=== PATIENT | male | born 2005 | race Caucasian/White ===

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

== ENCOUNTER 2023-05-13 14:17 | Emergency (ER) | payer OTHER, SELFPAY ==
[2023-05-13 14:40] VITALS: BP 118/66; PULSE 87; RESP 18; TEMP 37; O2SAT 96; BMI 16.9
--- NOTE | 2023-05-13 15:06 | EXP.UTC ---
Discharge Plan Disposition Patient Disposition: Home, Self-Care Condition: Good Prescriptions Prescriptions: New wifxlethehmmpvt-fpbihshri-FS [Bromfed DM] 2-30-10 mg/5 mL Syrup 5 ml PO Q6H PRN (Reason: Cough) Qty: 240 0RF ondansetron 4 mg Tablet,Disintegrating 4 mg PO Q8H PRN (Reason: Nausea) Qty: 8 0RF Referrals Follow up/Referrals: Provider,Referral, MD [Primary Care Provider] - See instructions Activity Restrictions/Add. Instructions Additional Instructions/Restrictions: Drink plenty of fluids. Take tylenol or ibuprofen for pain or fever. Take the medications as directed. Follow up with your regular doctor. GO TO THE ER FOR ANY WORSENING SYMPTOMS Clinical Impressions Clinical Impression: Influenza B Stand Alone Forms Stand Alone Forms: Work/School Release Instructions Patient Instructions: Influenza, DI for Influenza -- Adult, Ondansetron Discharge ED Provider: Guanakito Hadley [facility] General Stated complaint: abd pain, V/D Time Seen by Provider: 05/13/23 15:06 History of Present Illness Provider Complaint: He states that for the past 2 days he has had fever, chills, malaise, n/v/d. He denies any abdominal pain. Related Data Previous Rx's Medication Instructions Recorded zfjgmgppqiwxuhw-patnijvxmxupluv-UQ 5 ml PO Q6H PRN Cough #240 mL 05/13/23 2 mg-30 mg-10 mg/5 mL oral syrup (Bromfed DM) ondansetron 4 mg disintegrating 4 mg PO Q8H PRN Nausea #8 tabs 05/13/23 tablet Allergies Allergy/AdvReac Type Severity Reaction Status Date / Time No Known Allergies Allergy Verified 05/13/23 15:10 [facility] Disclaimer: The information contained in this section may have been updated after the patient was seen, as this information can be updated by other users. Social History Smoking Status: Never smoker alcohol intake: never substance use type: denies use current occupational status: student Travel in the last 8 weeks: None household members: family housing: house ROS Obtained: Yes All systems reviewed & no additional complaints except as documented Constitutional Constitutional: Denies chills, Denies fever(s) and Reports poor appetite ENT Ears, Nose, Mouth, and Throat: Denies dizziness and Denies sore throat Cardiovascular Cardiovascular: Denies dyspnea Respiratory Respiratory: Denies chest congestion, Denies cough and Denies dyspnea Gastrointestinal Gastrointestingal: Reports as per HPI, cramping, diarrhea, nausea and vomiting; Denies abdominal pain Musculoskeletal Musculoskeletal: Denies arthralgias Integumentary/Breasts Skin/Breast: Denies rash Neurologic Neurologic: Denies dizziness Physical Exam General General appearance: alert and in no apparent distress Head Head exam: atraumatic and normocephalic Eye Eye exam: Present normal appearance, PERRL and EOMI ENT ENT exam: Present normal exam, normal oropharynx, mucous membranes moist, TM's normal bilaterally and normal external ear exam Neck Neck exam: Present normal inspection, full ROM and trachea midline; Absent tenderness, meningismus or lymphadenopathy Chest Chest inspection: Present normal inspection and symmetric chest wall rise; Absent tenderness, rash or abscess Respiratory Respiratory exam: Present normal lung sounds bilaterally; Absent respiratory distress, wheezes or stridor Cardiovascular Cardiovascular exam: Present regular rate and normal rhythm; Absent irregular rhythm, systolic murmur, diastolic murmur or JVD Abdominal Exam Abdominal exam: Present soft and hyperactive bowel sounds; Absent distention, tenderness, guarding, rebound, rigidity, psoas sign, obturator sign, heel tap sign, Forrest's sign, Rovsing's sign or tenderness at McBurney's Point Extremities Exam Extremities exam: Present normal inspection and full ROM; Absent tenderness Back Exam Back exam: Present normal inspection and full ROM; Absent tenderness, CVA tenderness (R) or CVA tenderness (L) Neurological Exam Neurological exam: Present alert, oriented X3 and CN II-XII intact Psychiatric Psychiatric exam: Present normal affect and normal mood Skin Skin exam: Present warm, dry, intact and normal color Lymphatic Lymphatic Findings: no adenopathy Medical Decision Making Medical Records Medical records reviewed: No I reviewed the patient's medical records. Zander Inquiry Pt receiving controlled substance: No Lab Data Lab results reviewed: Yes I reviewed the patient's lab results.
[2023-05-13 15:20] LABS: UTC Strep Screen (Rapid) Negative (Negative)
[2023-05-13 15:21] LABS: UTC Influenza A Antigen Negative (Negative); UTC Influenza B Antigen Positive (Negative)
[2023-05-13 15:30] VITALS: BP 118/66; PULSE 87; RESP 18; TEMP 37; O2SAT 96
== END 2023-05-13 15:39 | disposition home or self-care (01) ==
PROVIDERS: Emergency Provider Nurse Practitioner Family
DX: J10.2 Influenza due to other identified influenza virus with gastrointestinal manifestations (principal); R11.2 Nausea with vomiting, unspecified; R19.7 Diarrhea, unspecified
CPT/HCPCS: 87804; 87880; 99212; 99214; G0463

== ENCOUNTER 2023-07-23 14:16 | Emergency (ER) | payer OTHER, SELFPAY ==
[2023-07-23 15:00] VITALS: BP 134/80; PULSE 74; RESP 19; TEMP 36.9; O2SAT 98; BMI 16.5
--- NOTE | 2023-07-23 15:18 | EXP.UTC ---
Discharge Plan Disposition Patient Disposition: Home, Self-Care Condition: Good Prescriptions Prescriptions: New ondansetron 4 mg tablet,disintegrating 4 mg PO Q8H PRN (Reason: nausea and vomiting) Qty: 10 0RF Referrals Follow up/Referrals: Simi Daigle PA [Primary Care Provider] - See instructions Activity Restrictions/Add. Instructions Additional Instructions/Restrictions: Drink extra fluids with and between meals. If you have difficulty drinking, try very small amounts of water or suck on ice chips. ? Avoid fruit juices, as these do not replace minerals and can actually increase diarrhea. ? Children and adults can use sports drinks to replenish electrolytes. Younger children and infants should use products formulated for children, like oral rehydration solutions. ? Eat food in small amounts and let your stomach recover. ? Get lots of rest. You may feel tired or weak. ? No greasy or fried foods for the next 24-48 hours BRAT diet Bananas Rice Apples and [place] ? Make sure to drink plenty of liquids ? Return if needed ? Straight to ER if any life threatening symptoms ? Zofran as prescribed ? Follow up with family doctor in the next 48-72 hours if no improvement or any worsening of symptoms Clinical Impressions Clinical Impression: Viral syndrome Stand Alone Forms Stand Alone Forms: Work/School Release Instructions Patient Instructions: Nausea and Vomiting-Adult, Ondansetron Discharge ED Provider: Aleida Ryder [facility] General Stated complaint: abd pain, body aches Mode of Arrival: Ambulatory Source of Information: Patient Limitations: No Limitations Time Seen by Provider: 07/23/23 15:18 Description of Symptoms (Recalled from Triage Doc. by RN): PATIENT C/O NAUSEA AND HEADACHE SINCE YESTERDAY HEENT Symptoms (Recalled from RN notes): Yes Resp Symptoms (Recalled from RN notes): No Skin Symptoms (Recalled from RN notes): No MS Symptoms (Recalled from RN notes): No Functional Status (Recalled from RN notes): WNL History of Present Illness Provider Complaint: Patient states that little sister had stomach bug last week and he woke up yesterday with n/v and headache and wasnt able to work States today he hasnt vomited any but still having nausea and little headache and didnt go into work today needing a note Related Data Previous Rx's Medication Instructions Recorded ondansetron 4 mg disintegrating 4 mg PO Q8H PRN nausea and 07/23/23 tablet vomiting #10 tabs Allergies Allergy/AdvReac Type Severity Reaction Status Date / Time No Known Allergies Allergy Verified 05/13/23 15:10 Worker's Comp Is this a Worker's Comp case?: No [facility] Disclaimer: The information contained in this section may have been updated after the patient was seen, as this information can be updated by other users. Medical History (Updated 07/23/23 @ 15:25 by Aleida Ryder APRN) No significant past medical history Social History Smoking Status: Never smoker alcohol intake: never substance use type: denies use current occupational status: student Travel in the last 8 weeks: None household members: family housing: house ROS Obtained: Yes All systems reviewed & no additional complaints except as documented and Yes Systems reviewed as appropriate & no additional complaints except as documented Constitutional Constitutional: Reports system reviewed and no additional complaints, except as documented, Reports as per HPI and Reports headache(s) ENT Ears, Nose, Mouth, and Throat: Reports system reviewed and no additional complaints, except as documented, Reports as per HPI and Reports headache(s) Cardiovascular Cardiovascular: Reports system reviewed and no additional complaints, except as documented and Reports as per HPI Respiratory Respiratory: Reports system reviewed and no additional complaints, except as documented and Reports as per HPI Gastrointestinal Gastrointestingal: Reports system reviewed and no additional complaints, except as documented, as per HPI, nausea and vomiting Neurologic Neurologic: Reports headache(s) Physical Exam General General appearance: alert and in no apparent distress Eye Eye exam: Present normal appearance, PERRL and EOMI ENT ENT exam: Present mucous membranes moist Expanded ENT Exam Nose exam: Absent sinus tenderness Throat exam: Present normal inspection Respiratory Respiratory exam: Present normal lung sounds bilaterally; Absent respiratory distress or wheezes Cardiovascular Cardiovascular exam: Present regular rate and normal heart sounds; Absent normal rhythm or bradycardia Neurological Exam Neurological exam: Present alert, oriented X3 and normal gait Medical Decision Making Zander Inquiry Pt receiving controlled substance: No Zander was queried for this patient: No Vital Signs: 07/23/23 15:00 Temperature 98.4 F Temperature Source Oral Pulse Rate [Left Brachial] 74 Respiratory Rate 19 Blood Pressure [Left Arm] 134/80 Blood Pressure Mean [Left Arm] 98 Blood Pressure Source [Left Arm] Automatic Cuff Blood Pressure Position [Left Arm] Sitting 02 Sat by Pulse Oximetry 98 Oxygen Delivery Method Room Air
[2023-07-23] MEDS: IBUPROFEN 600 MG TABLET PO (15:32)
[2023-07-23 15:33] VITALS: BP 134/80; PULSE 74; RESP 19; TEMP 36.9; O2SAT 98
== END 2023-07-23 15:36 | disposition home or self-care (01) ==
PROVIDERS: Emergency Provider Nurse Practitioner; PCP Physician Assistant
DX: R11.2 Nausea with vomiting, unspecified (principal); R51.9 Headache, unspecified; B34.9 Viral infection, unspecified
CPT/HCPCS: 99212; 99214; G0463

== ENCOUNTER 2023-08-31 14:39 | Emergency (ER) | payer OTHER, SELFPAY ==
--- NOTE | 2023-08-31 14:45 | ED_ITS ---
Discharge Plan Disposition Patient Disposition: Home, Self-Care Condition: Good Prescriptions Prescriptions: New xjbhjeiebrdeayr-lptxvpegj-PN [Bromfed DM] 2-30-10 mg/5 mL syrup 5 - 10 ml PO Q4H PRN (Reason: Cough) Qty: 240 0RF Mediplast Nvdx-Rsgwvb-Zxdq 40 % adhesive patch,medicated 1 applic topical Q2D Qty: 25 0RF terbinafine HCl [Athlete's Foot (terbinafine)] 1 % cream 1 applic topical BID Qty: 30 1RF Referrals Follow up/Referrals: Simi Daigle PA [Primary Care Provider] - See instructions Clinical Impressions Clinical Impression: Viral upper respiratory illness, Wart, Athlete's foot Instructions Patient Instructions: DI for Viral Upper Respiratory Infection -- Adult Discharge ED Provider: Simi Daigle [facility] [place] [place] HPI General Stated complaint: heacahe, sore throat, cough, congestion Time Seen by Provider: 08/31/23 15:11 History of Present Illness Provider Complaint: Headache, sore throat, cough congestion X 1 days. No fever Wart on left hand. Toenail fungus. Onset (ago): day(s) (1) Related Data Previous Rx's Medication Instructions Recorded iykpjqiqfbkbgfv-dubjmwckiobyehi-OM 5 - 10 ml PO Q4H PRN Cough #240 mL 08/31/23 2 mg-30 mg-10 mg/5 mL oral syrup (Bromfed DM) salicylic acid 40 % topical patch 1 applic topical Q2D #25 ea 08/31/23 (Mediplast Efdu-Uhvpkg-Moom Remover) terbinafine HCl 1 % topical cream 1 applic topical BID #30 grams 08/31/23 (Athlete's Foot (terbinafine)) Allergies Allergy/AdvReac Type Severity Reaction Status Date / Time No Known Allergies Allergy Verified 08/31/23 14:54 [facility] Disclaimer: The information contained in this section may have been updated after the patient was seen, as this information can be updated by other users. Medical History (Updated 08/31/23 @ 15:23 by BONNIE Mejia) No significant past medical history Social History Smoking Status: Never smoker alcohol intake: never substance use type: denies use current occupational status: student Travel in the last 8 weeks: None household members: family housing: house ROS Obtained: Yes All systems reviewed & no additional complaints except as documented Constitutional Constitutional: Reports headache(s) ENT Ears, Nose, Mouth, and Throat: Reports headache(s), Reports sinus pain, Reports sinus pressure and Reports sore throat Respiratory Respiratory: Reports cough Neurologic Neurologic: Reports headache(s) Physical Exam General General appearance: alert and in no apparent distress Eye Eye exam: Present normal appearance, PERRL and EOMI ENT ENT exam: Present mucous membranes moist Expanded ENT Exam Nose exam: Absent sinus tenderness Throat exam: Present tonsillar erythema and other (PND) Respiratory Respiratory exam: Present normal lung sounds bilaterally; Absent respiratory distress or wheezes Cardiovascular Cardiovascular exam: Present regular rate and normal heart sounds; Absent normal rhythm or bradycardia Neurological Exam Neurological exam: Present alert, oriented X3 and normal gait Medical Decision Making Zander Inquiry Pt receiving controlled substance: No
[2023-08-31 14:50] VITALS: BP 124/79; PULSE 79; RESP 18; TEMP 36.7; O2SAT 100; BMI 16.3
[2023-08-31 15:03] LABS: UTC Strep Screen (Rapid) Negative (Negative)
[2023-08-31 15:43] VITALS: BP 124/79; PULSE 79; RESP 18; TEMP 36.7; O2SAT 100
== END 2023-08-31 15:43 | disposition home or self-care (01) ==
PROVIDERS: Emergency Provider Physician Assistant; PCP Physician Assistant
DX: R51.9 Headache, unspecified (principal); R07.0 Pain in throat; J06.9 Acute upper respiratory infection, unspecified; R05.9 Cough, unspecified; B35.3 Tinea pedis; B07.9 Viral wart, unspecified
CPT/HCPCS: 87880; 99212; 99214; G0463

== ENCOUNTER 2023-12-06 18:46 | Emergency (ER) | payer OTHER, SELFPAY ==
[2023-12-06 19:25] VITALS: BP 131/73; PULSE 71; RESP 20; TEMP 37.1; O2SAT 99; BMI 17.4
--- NOTE | 2023-12-06 19:28 | HMH.EDGENADL ---
Discharge Plan Disposition Patient Disposition: Home, Self-Care Condition: Good Prescriptions Prescriptions: New ondansetron 4 mg tablet,disintegrating 4 mg PO Q8H PRN (Reason: nausea and vomiting) Qty: 10 0RF Referrals Follow up/Referrals: Simi Daigle PA [Primary Care Provider] - See instructions Activity Restrictions/Add. Instructions Additional Instructions/Restrictions: Drink extra fluids with and between meals. If you have difficulty drinking, try very small amounts of water or suck on ice chips. ? Avoid fruit juices, as these do not replace minerals and can actually increase diarrhea. ? Children and adults can use sports drinks to replenish electrolytes. Younger children and infants should use products formulated for children, like oral rehydration solutions. ? Eat food in small amounts and let your stomach recover. ? Get lots of rest. You may feel tired or weak. ? No greasy or fried foods for the next 24-48 hours BRAT diet Bananas Rice Apples and [place] ? Make sure to drink plenty of liquids ? Return if needed ? Straight to ER if any life threatening symptoms ? Zofran as prescribed ? Follow up with family doctor in the next 48-72 hours if no improvement or any worsening of symptoms Clinical Impressions Clinical Impression: Nausea vomiting and diarrhea Stand Alone Forms Stand Alone Forms: Work/School Release Instructions Patient Instructions: Nausea and Vomiting-Adult, Diarrhea Print Language Print Language: Mozambican Discharge ED Provider: Aleida Ryder Adult HPI General Stated complaint: abdomin pain , vomiting,fever, nausea Time Seen by Provider: 12/06/23 19:29 Mode of Arrival: Ambulatory Description of Symptoms (Recalled from ER Triage Doc. by RN): ACHY/CRAMPING PAIN IN LOWER ABD, VOMITING, DIARRHAE History of Present Illness HPI narrative: Patient states that he woke up this morning with nausea vomiting and diarrhea States he wasnt able to go to work so he stayed home and slept most of the day States that this evening he came in to get a work note States last vomiting and diarrhea was this morning Related Data Previous Rx's ?Medication ?Instructions ?Recorded ondansetron 4 mg disintegrating 4 mg PO Q8H PRN nausea and 12/06/23 tablet vomiting #10 tabs Allergies Allergy/AdvReac Type Severity Reaction Status Date / Time No Known Allergies Allergy Verified 08/31/23 14:54 [facility] Disclaimer: The information contained in this section may have been updated after the patient was seen, as this information can be updated by other users. Medical History (Updated 12/06/23 @ 19:39 by Aleida Ryder APRN) No significant past medical history Social History Smoking Status: Never smoker alcohol intake: never substance use type: denies use current occupational status: student Travel in the last 8 weeks: None household members: family housing: house ROS Obtained: Yes All systems reviewed & no additional complaints except as documented and Yes Systems reviewed as appropriate & no additional complaints except as documented Constitutional Constitutional: Reports system reviewed and no additional complaints, except as documented and Reports as per HPI ENT Ears, Nose, Mouth, and Throat: Reports system reviewed and no additional complaints, except as documented and Reports as per HPI Cardiovascular Cardiovascular: Reports system reviewed and no additional complaints, except as documented and Reports as per HPI Respiratory Respiratory: Reports system reviewed and no additional complaints, except as documented and Reports as per HPI Gastrointestinal Gastrointestingal: Reports system reviewed and no additional complaints, except as documented, as per HPI, cramping (at times), diarrhea, nausea and vomiting; Denies abdominal pain Physical Exam General General appearance: alert and in no apparent distress ENT ENT exam: Present mucous membranes moist Respiratory Respiratory exam: Present normal lung sounds bilaterally; Absent respiratory distress or wheezes Cardiovascular Cardiovascular exam: Present regular rate, normal rhythm and normal heart sounds Abdominal Exam Abdominal exam: Present soft and normal bowel sounds; Absent distention, tenderness, guarding or rebound Neurological Exam Neurological exam: Present alert, oriented X3 and normal gait Medical Decision Making Medical Records Screening: Per USPSTF and CDC recommendations, given the prevalence of disease in our region, it is our hospital?s policy to screen for HIV and viral Hepatitis for all patients aged 18 and over and those with ongoing risk factors. Zander Inquiry Pt receiving controlled substance: No Zander was queried for this patient: No Vital Signs: 12/06/23 19:25 Temperature 98.8 F Temperature Source Oral Pulse Rate [Left Brachial] 71 Respiratory Rate 20 Blood Pressure [Left Arm] 131/73 Blood Pressure Mean [Left Arm] 92 02 Sat by Pulse Oximetry 99 Critical Care Critical Care Time Critical Care Time: No
[2023-12-06 19:40] VITALS: BP 131/73; PULSE 71; RESP 20; TEMP 37.1
== END 2023-12-06 19:43 | disposition home or self-care (01) ==
PROVIDERS: Emergency Provider Nurse Practitioner; PCP Physician Assistant
DX: R11.2 Nausea with vomiting, unspecified (principal); R19.7 Diarrhea, unspecified
CPT/HCPCS: 99212; 99214; G0463

== ENCOUNTER 2024-06-23 17:31 | Emergency (ER) | payer SELFPAY ==
[2024-06-23 17:58] VITALS: BP 124/73; PULSE 87; RESP 19; TEMP 37.2; O2SAT 100; BMI 17.7
--- NOTE | 2024-06-23 18:03 | HMH.EDGENADL ---
Discharge Plan Disposition Patient Disposition: Home, Self-Care Condition: Good Prescriptions Prescriptions: No Action ondansetron 4 mg tablet,disintegrating 4 mg PO Q8H PRN (Reason: nausea and vomiting) Qty: 10 0RF Referrals Follow up/Referrals: Simi Daigle PA [Primary Care Provider] - See instructions Activity Restrictions/Add. Instructions Additional Instructions/Restrictions: Please return to the emergency department with any worsening signs or symptoms, any worsening abdominal pain nausea vomiting fever or chills, utilize ibuprofen and Tylenol as needed for pain. Please follow-up with your family doctor. Clinical Impressions Clinical Impression: Abdominal pain Instructions Patient Instructions: DI for Acute Abdominal Pain Print Language Print Language: [place] Discharge ED Provider: Joel Chavez General Adult HPI <BONNIE Julian - Last Filed: 06/23/24 19:56> General Chief complaint: Abdominal Pain Stated complaint: Right side pain,denies N/V Time Seen by Provider: 06/23/24 17:45 Mode of Arrival: Ambulatory Source of Information: Patient Description of Symptoms (Recalled from ER Triage Doc. by RN): pt presents to ED with c/o lower right abdominal pain ongoing for 1 month. History of Present Illness HPI narrative: 18-year-old male presents the emergency department with a 1 month history of right-sided lower abdominal pain, patient denies any nausea vomiting, denies fever chills chest pain shortness of breath, denies any urinary type symptomatology, denies melena hematochezia hematemesis or hemoptysis, denies any urinary bladder or bowel dysfunction, denies any overt back pain or radicular symptomatology, [place] any constipation or diarrhea, chest pain or shortness of breath. Patient has no real relevant past medical history with the exception of ADHD, does not take any medication for this at home, denies any alcohol tobacco or drug use, no surgical history. When asking the patient what changed in his symptomatology prompted his emergency department visit today, patient states that the pain never got any better . Patient denies any trauma per history, denies any new sexual contacts or risky sexual behaviors, denies any genitourinary rashes, no genitourinary discharge, no testicular pain or swelling. Initial triage vitals grossly unremarkable Onset (ago): month(s) Related Data Previous Rx's ?Medication ?Instructions ?Recorded ondansetron 4 mg disintegrating 4 mg PO Q8H PRN nausea and 12/06/23 tablet vomiting #10 tabs Allergies Allergy/AdvReac Type Severity Reaction Status Date / Time No Known Allergies Allergy Verified 08/31/23 14:54 PFS <BONNIE Julian - Last Filed: 06/23/24 19:56> [facility] Disclaimer: The information contained in this section may have been updated after the patient was seen, as this information can be updated by other users. Medical History (Updated 06/23/24 @ 19:56 by BONNIE Julian) No significant past medical history Social History Smoking Status: Current every day smoker alcohol intake: never substance use type: denies use current occupational status: student Travel in the last 8 weeks: None household members: family housing: house Have you lived/traveled outside [place] in past 30 days?: No Contact w/someone who lives/traveled outside US past 30 days?: No Exposure to someone with infectious disease in past 14 days?: No Do you have a fever (greater than 100.4 F or 38 C)?: No Have you tested positive for COVID-19: No Exposed to someone with COVID-19 in past 14 days?: No Do you have a sore throat?: No Do you have a cough?: No Do you have any weakness?: No Do you have any diarrhea?: No Are you experiencing any unusual bleeding?: No Do you have any muscle aches/pain?: No Do you have any abdominal pain?: No Are you experiencing loss of taste or smell?: No Other Medical History Have you received the Flu Vaccine for this season: No Have you received the Pneumonia Vaccine: No <BONNIE Julian - Last Filed: 06/23/24 19:56> ROS Obtained: Yes All systems reviewed & no additional complaints except as documented Physical Exam <BONNIE Julian - Last Filed: 06/23/24 19:56> General General appearance: alert and in no apparent distress Head Head exam: atraumatic and normocephalic Eye Eye exam: Present PERRL and EOMI ENT ENT exam: Present mucous membranes moist Neck Neck exam: Present normal inspection Chest Chest inspection: Present normal inspection and symmetric chest wall rise Respiratory Respiratory exam: Present normal lung sounds bilaterally; Absent respiratory distress Cardiovascular Cardiovascular exam: Present regular rate and normal rhythm Abdominal Exam Abdominal exam: Present soft, tenderness, Forrest's sign and Rovsing's sign; Absent guarding, rebound, rigidity or tenderness at McBurney's Point Abdominal tenderness: Present RLQ, suprapubic and mild Comment: Patient has some minimal some mild right lower quadrant/suprapubic pain to palpation, no true McBurney's point tenderness, negative Rovsing's sign, or Forrest sign. No obvious mass present. Extremities Exam Extremities exam: Present normal inspection Neurological Exam Neurological exam: Present alert and oriented X3 Psychiatric Psychiatric exam: Present normal affect Skin Skin exam: Present warm and dry Medical Decision Making <BONNIE Julian - Last Filed: 06/23/24 19:56> Medical Records Medical records reviewed: Yes I reviewed the patient's medical records. Screening: Per USPSTF and CDC recommendations, given the prevalence of disease in our region, it is our hospital?s policy to screen for HIV and viral Hepatitis for all patients aged 18 and over and those with ongoing risk factors. Zander Inquiry Pt receiving controlled substance: No Zander was queried for this patient: No Vital Signs: 06/23/24 17:58 06/23/24 20:02 Temperature 98.9 F 98.2 F Temperature Source Oral Oral Pulse Rate 74 Pulse Rate [Left Radial] 87 Respiratory Rate 19 20 Blood Pressure 128/69 Blood Pressure [Right Arm] 124/73 Blood Pressure Mean [Right Arm] 90 Blood Pressure Source Automatic Cuff Blood Pressure Position Sitting 02 Sat by Pulse Oximetry 100 Oxygen Delivery Method Room Air Room Air Lab Data Lab Results 06/23/24 18:08: WBC 6.1, RBC 5.38, Hgb 16.6, Hct 46.6, MCV 86.6, MCH 30.9, MCHC 35.6 H, RDW 11.9, Plt Count 195, MPV 9.0, Neut % (Auto) 66.0, Lymph % (Auto) 24.3, Br[place] % (Auto) 7.8, Eos % (Auto) 0.8, Baso % (Auto) 0.8, Neut # (Auto) 4.0, Lymph # (Auto) 1.5, Brantley # (Auto) 0.5, Eos # (Auto) 0.1, Baso # (Auto) 0.1, ESR 1, Sodium 141, Potassium 3.6, Chloride 104, Carbon Dioxide 25, Anion Gap 15.6 H, BUN 9, Creatinine 0.90, Estimated Creat Clear 101, Estimated GFR 108, Est GFR ( Amer) 130, Glucose 99, Calcium 9.3, Total Bilirubin 0.8, AST 36, ALT 36, Alkaline Phosphatase 63, C-Reactive Protein < 0.3, Total Protein 7.9, Albumin 5.1 H, Globulin 2.8, Albumin/Globulin Ratio 1.8, HCV Ab PAULY w/Rflx PCR Qn Negative, HIV Ag/Ab Combo Qual Negative 06/23/24 19:25: Urine Color Yellow, Urine Appearance Clear, Urine pH 6.5, Ur Specific [place] 1.025, Urine Protein Negative, Urine Glucose (UA) Negative, Urine Ketones Negative, Urine Blood 1+ A, Urine Nitrate Negative, Urine Bilirubin Negative, Urine Urobilinogen 0.2, Ur Leukocyte Esterase Negative, Urine RBC 10-20, Urine WBC 3-5, Ur Squamous Epith Cells 3-5, Urine Bacteria 1+, Urine Mucus 1+ 06/23/24 18:08 06/23/24 18:08 Orders (Tests/Meds): ORDERS Category Date Time Status CRP [C-Reactive Protein] Stat Lab 06/23/24 18:08 Completed Complete Blood Count Auto Diff Stat Lab 06/23/24 18:08 Completed Comprehensive Metabolic Panel Stat Lab 06/23/24 18:08 Completed ESR [Erythrocyte Sedimentation Rate] Stat Lab 06/23/24 18:08 Completed HIV Combo Stat Lab 06/23/24 18:08 Completed Hepatitis C Ab Qual. W/ RFX Stat Lab 06/23/24 18:08 Completed Urinalysis and Microscopic Stat Lab 06/23/24 19:25 Completed Medical Decision Narrative: 18-year-old male presents the emergency department with abdominal pain, differential diagnosis include but limited to constipation, musculoskeletal pain, acute UTI among others. I discussed this patient's case with the attending physician Dr. Chavez Will obtain basic laboratory studies, urinalysis ESR and CRP. Patient had this pain ongoing for 1 month, making appendicitis less likely, will hold off on advanced imaging studies at this time and evaluate the patient with laboratory studies. CBC unremarkable ESR within normal limits. CMP is unremarkable, CRP within normal limits, Urinalysis noted for 1+ hematuria, negative for leukocyte Estrace negative for nitrites. I discussed the results with the patient at bedside, patient has benign abdominal exam, patient's symptomatology is been going on for 1 month. Low risk for appendicitis, due to patient's laboratory findings clinical exam. Patient will need to follow-up with PCP, hematuria could be small stone, however patient's symptomatology once again is going on for 1 month, if patient has remained hemodynamically stable that his time the emergency department abdominal exam is benign. Recommend ibuprofen Tylenol as needed for pain. Return to the emerged part with any worsening signs or symptoms. Please follow with PCP. <Joel Chavez MD - Last Filed: 06/23/24 23:09> Vital Signs: 06/23/24 17:58 06/23/24 20:02 Temperature 98.9 F 98.2 F Temperature Source Oral Oral Pulse Rate 74 Pulse Rate [Left Radial] 87 Respiratory Rate 19 20 Blood Pressure 128/69 Blood Pressure [Right Arm] 124/73 Blood Pressure Mean [Right Arm] 90 Blood Pressure Source Automatic Cuff Blood Pressure Position Sitting 02 Sat by Pulse Oximetry 100 Oxygen Delivery Method Room Air Room Air Lab Data Lab Results 06/23/24 18:08: WBC 6.1, RBC 5.38, Hgb 16.6, Hct 46.6, MCV 86.6, MCH 30.9, MCHC 35.6 H, RDW 11.9, Plt Count 195, MPV 9.0, Neut % (Auto) 66.0, Lymph % (Auto) 24.3, Brantley % (Auto) 7.8, Eos % (Auto) 0.8, Baso % (Auto) 0.8, Neut # (Auto) 4.0, Lymph # (Auto) 1.5, [place] # (Auto) 0.5, Eos # (Auto) 0.1, Baso # (Auto) 0.1, ESR 1, Sodium 141, Potassium 3.6, Chloride 104, Carbon Dioxide 25, Anion Gap 15.6 H, BUN 9, Creatinine 0.90, Estimated Creat Clear 101, Estimated GFR 108, Est GFR ( Amer) 130, Glucose 99, Calcium 9.3, Total Bilirubin 0.8, AST 36, ALT 36, Alkaline Phosphatase 63, C-Reactive Protein < 0.3, Total Protein 7.9, Albumin 5.1 H, Globulin 2.8, Albumin/Globulin Ratio 1.8, HCV Ab PAULY w/Rflx PCR Qn Negative, HIV Ag/Ab Combo Qual Negative 06/23/24 19:25: Urine Color Yellow, Urine Appearance Clear, Urine pH 6.5, Ur Specific [place] 1.025, Urine Protein Negative, Urine Glucose (UA) Negative, Urine Ketones Negative, Urine Blood 1+ A, Urine Nitrate Negative, Urine Bilirubin Negative, Urine Urobilinogen 0.2, Ur Leukocyte Esterase Negative, Urine RBC 10-20, Urine WBC 3-5, Ur Squamous Epith Cells 3-5, Urine Bacteria 1+, Urine Mucus 1+ Orders (Tests/Meds): ORDERS Category Date Time Status CRP [C-Reactive Protein] Stat Lab 06/23/24 18:08 Completed Complete Blood Count Auto Diff Stat Lab 06/23/24 18:08 Completed Comprehensive Metabolic Panel Stat Lab 06/23/24 18:08 Completed ESR [Erythrocyte Sedimentation Rate] Stat Lab 06/23/24 18:08 Completed HIV Combo Stat Lab 06/23/24 18:08 Completed Hepatitis C Ab Qual. W/ RFX Stat Lab 06/23/24 18:08 Completed Urinalysis and Microscopic Stat Lab 06/23/24 19:25 Completed Medical Decision Narrative: 18-year-old male presents the emergency department with abdominal pain, differential diagnosis include but limited to constipation, musculoskeletal pain, acute UTI among others. I discussed this patient's case with the attending physician Dr. Chavez Will obtain basic laboratory studies, urinalysis ESR and CRP. Patient had this pain ongoing for 1 month, making appendicitis less likely, will hold off on advanced imaging studies at this time and evaluate the patient with laboratory studies. CBC unremarkable ESR within normal limits. CMP is unremarkable, CRP within normal limits, Urinalysis noted for 1+ hematuria, negative for leukocyte Estrace negative for nitrites. I discussed the results with the patient at bedside, patient has benign abdominal exam, patient's symptomatology is been going on for 1 month. Low risk for appendicitis, due to patient's laboratory findings clinical exam. Patient will need to follow-up with PCP, hematuria could be small stone, however patient's symptomatology once again is going on for 1 month, if patient has remained hemodynamically stable that his time the emergency department abdominal exam is benign. Recommend ibuprofen Tylenol as needed for pain. Return to the emerged part with any worsening signs or symptoms. Please follow with PCP. I was consulted by the SORAYA, and we discussed the complexity of the problems being addressed. I approved the treatment and management plan for this patient's care in the Emergency Department, thus performing a substantive portion of the medical decision making. Joel Chavez MD Critical Care <BONNIE Julian - Last Filed: 06/23/24 19:56> Critical Care Time Critical Care Time: No
[2024-06-23 18:17] LABS: Basophils # 0.1 K/mm3 (0-0.2); Basophils % 0.8 % (0.1-2.0); Eosinophils # 0.1 K/mm3 (0.0-0.4); Eosinophils % 0.8 % (0.1-12.0); Hematocrit 46.6 % (42.0-52.0); Hemoglobin 16.6 g/dL (14.1-18.0); Lymphocytes # 1.5 K/mm3 (0.7-4.5); Lymphocytes % 24.3 % (10-50); Mean Corpuscular HGB Conc 35.6 g/dL (31.8-35.4); Mean Corpuscular Hemoglobin 30.9 pg (27.0-31.2); Mean Corpuscular Volume 86.6 fl (80-94); Monocytes # 0.5 K/mm3 (0.1-1.0); Monocytes % 7.8 % (1.7-9.3); Platelet Count 195 K/mm3 (142-424); Red Blood Count 5.38 M/mm3 (4.60-6.20); Red Cell Distribution Width 11.9 % (11.5-17.5); White Blood Count 6.1 K/mm3 (4.5-13.0)
[2024-06-23 18:58] LABS: Erythrocyte Sedimentation Rate 1 mm/hr (0-15)
[2024-06-23 19:10] LABS: Chloride 104 mmol/L (98-107)
[2024-06-23 19:11] LABS: Albumin Level 5.1 g/dl (3.5-5.0); Potassium 3.6 mmoL/L (3.5-5.1); Sodium 141 mmol/L (136-145)
[2024-06-23 19:13] LABS: Blood Urea Nitrogen 9 mg/dl (9-20); Creatinine Clearance Estimated 101 mL/min (50-200); Estimated Glomerular Filt Rate 108 ml/min (>60); GFR (African American) 130 ML/MIN (>60)
[2024-06-23 19:14] LABS: Alanine Aminotransferase 36 U/L (12-78); Albumin/Globulin Ratio 1.8 (1.1-1.8); Alkaline Phosphatase 63 U/L (38-126); Anion Gap 15.6 mEq/L (5-15); Aspartate Amino Transferase 36 U/L (17-59); Bilirubin,Total 0.8 mg/dl (0.2-1.3); Calcium 9.3 mg/dl (8.4-10.2); Carbon Dioxide 25 mmol/L (22.0-30.0); Globulin 2.8 g/dL (1.3-3.2); Glucose 99 mg/dl (74-100); Total Protein,Serum 7.9 g/dl (6.3-8.2)
[2024-06-23 19:21] LABS: C-Reactive Protein < 0.3 mg/L (0-4)
[2024-06-23 19:35] LABS: Microscopic, Urine URINE MICROSCOPIC (MICROSCOPIC)
[2024-06-23 19:38] LABS: Appearance,Urine CLEAR (Clear); Bilirubin,Urine Negative (Negative); Blood, Urine 1+ (Negative); Color,Urine YELLOW (Yellow); Glucose,Urine (UA) Negative (Negative); Ketones,Urine Negative (Negative); Leukocyte Esterase,Urine Negative (Negative); Nitrate,Urine Negative (Negative); PH,Urine 6.5 (5.0-8.5); Protein,Urine Negative (Negative); Specific Gravity, Urine 1.025 (1.005-1.030); Urobilinogen,Urine 0.2 EU/dl (0.2)
[2024-06-23 20:02] VITALS: BP 128/69; PULSE 74; RESP 20; TEMP 36.8; O2SAT 100
[2024-06-23 20:05] LABS: Bacteria,Urine 1+ /lpf; Mucus,Urine 1+ /lpf
[2024-06-23 20:08] LABS: HIV Combo NEGATIVE (Negative)
[2024-06-23 20:15] LABS: Hepatitis C Ab Qual. W/ RFX NEGATIVE (Negative)
== END 2024-06-23 20:03 | disposition home or self-care (01) ==
PROVIDERS: Physician Assistant; Emergency Provider Emergency Medicine; PCP Physician Assistant
DX: R10.31 Right lower quadrant pain (principal); R10.2 Pelvic and perineal pain; R31.9 Hematuria, unspecified; Z72.0 Tobacco use
CPT/HCPCS: 80053; 81001; 85025; 85651; 86140; 86803; 87389; 99283

== ENCOUNTER 2024-12-02 13:34 | Emergency (ER) | payer SELFPAY ==
--- OUTSIDE RECORDS SUMMARY | 2012-03-28 03:36 | XMS_ITS | Continuity of Care Document ---
Author Organization Quirino Donald [facility] Address [employer] [facility] [address] [place] [address] Phone Care Team Providers Care Ecmo Specialist Name Role Phone Purvi OTERO MD, Fariha Unavailable Unava ilable Medications Medication Instructions Dosage Effective Dates (start - stop) Status Comments Adderall XR 20 mg 24 hr Cap take 1 capsule (20MG) by oral route every day in the morning upon awakening 20 MG - Active Ovide 0.5 % Lotion apply by topical route use as directed Not Available - Active Adderall XR 20 mg 24 hr Cap take 1 capsule (20MG) by oral route every day in the morning upon awakening 20 MG - No Longer Active Procedures Procedure Date PREV VISIT, EST, AGE 5-11 OFFICE/OUTPATIENT VISIT, EST PURE TONE HEARING TEST, AIR VISUAL ACUITY SCREEN URINALYSIS, AUTO, W/O SCOPE FLU VACCINE, NASAL OFFICE/OUTPATIENT VISIT, EST OFFICE/OUTPATIENT VISIT, EST STREP A ASSAY W/OPTIC OFFICE/OUTPATIENT VISIT, EST OFFICE/OUTPATIENT VISIT, EST OFFICE/OUTPATIENT VISIT, EST OFFICE/OUTPATIENT VISIT, EST OFFICE/OUTPATIENT VISIT, EST OFFICE/OUTPATIENT VISIT, EST MEASURE BLOOD OXYGEN LEVEL OFFICE/OUTPATIENT VISIT, EST STREP A ASSAY W/OPTIC OFFICE/OUTPATIENT VISIT, NEW Advance Directives Directive Yes / No Effective Date File Name No Information Encounters Encounter Description Practice Location Reason(s) For Visit Diagnoses Date Provider Providers Copied on Encounter Quirino Castro [employer] [facility] Shirau sonali, [employer] [facility] [address] [place] [address], [place], [place], [facility], tel: [phone] [facility] No Information 3 Purvi Fried. [address], [id number] 0, [place], [place], [facility], [place]. tel:[phone] [facility] Shirau sonali, [employer] [facility] [address] [place] [address], [place], [facility], tel: [phone] [facility] No Information 2 Purvi Fried. [address], [id number] 0, [place], [facility], [place]. tel:[phone] [facility] Shirau sonali, [facility] [address] [place] [address], [place], [facility], tel: [phone] [facility] No Information 2 Purvi Fried. [address], [id number] 0, [place], [facility], [place]. tel:[phone] PREV VISIT, EST, AGE 5-11 Quirino Castro [employer] [facility] Shirau sonali, [employer] [facility] [address], [place], [place], [facility], [place] tel: [phone] [facility] Well child - 8 Years (chief complaint) ADD/ADHD (chief complaint) Routine infant or child health checkADHD Combined Type 2 Purvi Fried. [address], [id number] 0, [place], [facility], [place]. 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 3 [facility], [id number] 0, [place], [address], [place]. tel:[phone] OFFICE/OUTPA TIENT VISIT, CECILE [facility] Tjraviu sonali, [employer] [facility] [address], [place], [address], [place] tel:[phone] [facility] ADD/ADHD (chief complaint) sore throat (chief complaint) Attention deficit disorder of childhood with hyperactivityAcute tonsillitis 2 [facility] Sreedhar. 3 [facility], [id number] 0, [place], [facility], [place]. tel:[phone] OFFICE/OUTPA TIENT VISIT, CECILE [facility] Tjravijeff lyon, [facility] [address], [place], [facility], [place] tel:[phone] [facility] ADD/ADHD (chief complaint) stye on eye (chief complaint) ADHD (attention deficit hyperactivity disorder)Skin pustule 1 [facility] Sreedhar. 3 [facility], [id number] 0, [place], [facility], [place]. tel:[phone] OFFICE/OUTPA TIENT VISIT, CECILE [facility] Tjraviu sonali, [facility] [address], [place], [address], [place] tel:[phone] [facility] adhd meds (chief complaint) No Information [address]. 3 [facility] A, [id number] 0, [place], [address], [place]. [phone] OFFICE/OUTPA TIENT VISIT, CECILE [facility] Tjmick sonali, [facility] [address], [facility], tel:[phone] [facility] follow up ER (chief complaint) skin itching (chief complaint) Contact dermatitis and other eczema, unspecified cause 1 Kayla Nagy. [address] [place] [address], [id number] [place] [address], . tel:[phone] OFFICE/OUTPA TIENT VISIT, CECILE Donald [employer] [facility] Tjtiu m, [employer] [facility] [address], [facility], tel:[phone] [facility] ADHD follow up (chief complaint) No Information 1 Maggie Eli. [address] [place] [address], Neri A, [id number] 0, [place] [address], . tel:[phone] OFFICE/OUTPA TIENT VISIT, CECILE Donald [employer] [facility] m, [employer] [facility] [address], [facility], tel:[phone] [facility] adhd (chief complaint) No Information 1 Maggie Eli. [address] [place] [address], Neri A, [id number] [address], [place], [facility], . tel:[phone] OFFICE/OUTPA TIENT VISIT, CECILE Donald [employer] [facility] Consortiu m, [employer] [facility] [address], [facility], tel:[phone] [facility] ADHD (chief complaint) No Information 1 Maggie Eli. [address] [place] [address], Neri A, [id number] 0, [place], [facility], . tel:[phone] OFFICE/OUTPA TIENT VISIT, CECILE Donald [employer] [facility] m, [employer] [facility] [address], [facility], tel:[phone] [facility] fever (chief complaint) cough (chief complaint) congestion (chief complaint) No Information [address] [facility], Neri A, [id number] 0, [place], [address], [place]. tel:[phone] OFFICE/OUTPA TIENT VISIT, PIPER [facility] TRINITY Velásquez [facility] [address], [place], [address], [place] [phone] [facility] rash (chief complaint) Contact dermatitis and other eczema, unspecified cause Nov-2 3-201 [address] [facility], Neri A, [id number] 0, [place], [address], [place]. tel:[phone] Family History Family Member Type Diagnosis Age At Onset Problem (finding) Family history of depre ssion Problem (finding) Family history of attention deficit hyperactivity disorder Problem (finding) Family history of hyper tension Problem (finding) Family history of coronary arteriosclerosis Problem (finding) Developmental delay Problem (finding) Family history of learn ing disability Problem (finding) Family history of migra ine Immunizations Vaccine Date Status Comments Influenza virus vaccine, intranasal administered Source: New Immuniza tion Record Influenza virus vaccine, intranasal administered Source: New Immuniza tion Record Payers Payer name Insurance type Covered republican ID Authoriza tion(s) [employer] Medicaid [facility] CI [id number] Formerly [facility] [id number] Social History Type Description Quantity Date Captured Comments Sex Male Smoking Status No Information Chief Complaint And Reason For Visit No Information Reason For Referral Reason For Referral No Information Plan Of Treatment Date Type Action Status Referral Ordered: [facility] (related to Attention deficit disorder of childhood with hyper) ordered Referral Ordered: Referral: [facility]. Evaluate and treat. ordered History Of Present Illness Encounter Date Complaint History Of Prese nt Illness No Information Functional Status Date Functional Assessmen t No Information Instructions Date Instruction Additional Infor mation No Information Assessments Type Assessment Date No Information Patient Care Teams Name Effective Dates (start - stop) Status Members No Information
[2024-12-02 14:10] VITALS: BP 126/68; PULSE 83; RESP 16; TEMP 36.6; O2SAT 100; BMI 16.9
--- NOTE | 2024-12-02 15:01 | CT_ITS ---
FINAL REPORT TECHNIQUE: Oral and IV contrast enhanced exam This study was performed with techniques to keep radiation doses as low as reasonably achievable, (ALARA). Individualized dose reduction techniques using automated exposure control or adjustment of mA and/or kV according to the patient''s size were employed. CLINICAL HISTORY: RLQ pain FINDINGS: Abdomen: No acute density is seen within the lung bases. The gallbladder is unremarkable. Solid abdominal organs are unremarkable. No bowel obstruction is present. There is no free air. No fluid collection is seen. There is no adenopathy. Pelvis: The appendix is normal. No bowel wall thickening is present. There is no free fluid. No pelvic mass is seen. IMPRESSION: Unremarkable exam Reviewed, Interpreted and Dictated by Shin Lott MD Transcribed by Pau Padilla Authenticated and [facility]
--- NOTE | 2024-12-02 15:03 | HMH.EDGENADL ---
Discharge Plan Disposition Patient Disposition: Home, Self-Care Condition: Good Prescriptions Prescriptions: New ibuprofen 600 mg tablet 600 mg PO Q8H PRN (Reason: pain) Qty: 30 0RF No Action ondansetron 4 mg tablet,disintegrating 4 mg PO Q8H PRN (Reason: nausea and vomiting) Qty: 10 0RF Referrals Follow up/Referrals: Simi Daigle PA [Primary Care Provider, Medical] - See instructions Humphrey Oliver DO [Staff Physician, Family Practice] - See instructions Activity Restrictions/Add. Instructions Additional Instructions/Restrictions: Follow-up with Dr. Oliver and make an appointment. You will need to call them to schedule this. You can take tylenol and ibuprofen as needed for pain control. Clinical Impressions Clinical Impression: Intermittent right lower quadrant abdominal pain Instructions Patient Instructions: DI for Urinary Tract Infection (UTI), DI for Urinary Tract Infection in Children Print Language Print Language: [place] Discharge ED Provider: Edilberto Robert Adult HPI <Edilberto Robert MD - Last Filed: 12/02/24 15:58> General Chief complaint: Urogenital-Male Stated complaint: Pain Lower Right Abd. Time Seen by Provider: 12/02/24 14:55 Mode of Arrival: Ambulatory Source of Information: Patient Description of Symptoms (Recalled from ER Triage Doc. by RN): PT REPORTS WAKING YESTERDAY AM WITH RIGHT LOWER QUAD PAIN. STATES PAIN HAS BEEN INTERMITTENT X 8 MONTHS. STATES HE HAS BEEN TOLD HE HAS HAD KIDNEY STONES, BUT NEVER HAD CT SCAN. PT REPORTS PAIN RADIATES TO GROIN. DENIES N/V. DENIES FEVER. REPORTS CHILLS. OCCASIONAL BURNING WITH URINATION History of Present Illness HPI narrative: Poli Dickerson is a 19y male with no significant past medical history who presents to the emergency department for complaints of right lower quadrant pain intermittently over the last 6 to 8 months. Patient states that 16 months ago, he was having right lower quadrant pain and was told that he had a kidney stone because they found blood in his urine after coming to the emergency department. He states that they did not scan him at that time. Ever since then, reports intermittent sharp right lower quadrant pain that is worsened with movement. He states that every now and then he will radiate down into his testicles. He states that pain worsened in the right lower quadrant this morning but is asymptomatic now. He denies any fever, nausea, vomiting, diarrhea. Related Data Previous Rx's ?Medication ?Instructions ?Recorded ondansetron 4 mg disintegrating 4 mg PO Q8H PRN nausea and 12/06/23 tablet vomiting #10 tabs ibuprofen 600 mg tablet 600 mg PO Q8H PRN pain #30 tabs 12/02/24 Allergies Allergy/AdvReac Type Severity Reaction Status Date / Time No Known Allergies Allergy Verified 08/31/23 14:54 PFS <Edilberto Robert MD - Last Filed: 12/02/24 15:58> [facility] Disclaimer: The information contained in this section may have been updated after the patient was seen, as this information can be updated by other users. Medical History (Updated 12/02/24 @ 15:08 by Edilberto Rboert MD) No significant past medical history Social History Smoking Status: Current every day smoker alcohol intake: never substance use type: denies use current occupational status: student Travel in the last 8 weeks?: None household members: family housing: house Have you lived/traveled outside [place] in past 30 days?: No Contact w/someone who lives/traveled outside US past 30 days?: No Exposure to someone with infectious disease in past 14 days?: No Do you have a fever (greater than 100.4 F or 38 C)?: No Have you tested positive for COVID-19?: No Exposed to someone with COVID-19 in past 14 days?: No Do you have a sore throat?: No Do you have a cough?: No Do you have any weakness?: No Do you have any diarrhea?: No Are you experiencing any unusual bleeding?: No Do you have any muscle aches/pain?: No Do you have any abdominal pain?: No Are you experiencing loss of taste or smell?: No Other Medical History Have you received the Flu Vaccine for this season: No Have you received the Pneumonia Vaccine: No <Edilberto Robert MD - Last Filed: 12/02/24 15:58> ROS Obtained: Yes Systems reviewed as appropriate & no additional complaints except as documented Physical Exam <Edilberto Robert MD - Last Filed: 12/02/24 15:58> General General appearance: alert and in no apparent distress Head Head exam: atraumatic Eye Eye exam: Present normal appearance ENT ENT exam: Present normal external ear exam Neck Neck exam: Present full ROM Chest Chest inspection: Present symmetric chest wall rise Respiratory Respiratory exam: Present normal lung sounds bilaterally; Absent respiratory distress Cardiovascular Cardiovascular exam: Present regular rate and normal rhythm Abdominal Exam Abdominal exam: Present soft; Absent tenderness or guarding exam: Present deferred Extremities Exam Extremities exam: Present normal inspection Back Exam Back exam: Present normal inspection Neurological Exam Neurological exam: Present alert and oriented X3 Psychiatric Psychiatric exam: Present normal affect Skin Skin exam: Present warm and dry Medical Decision Making <Edilberto Robert MD - Last Filed: 12/02/24 15:58> Medical Records Screening: Per USPSTF and CDC recommendations, given the prevalence of disease in our region, it is our hospital?s policy to screen for HIV and viral Hepatitis for all patients aged 18 and over and those with ongoing risk factors. Zander Inquiry Pt receiving controlled substance: No Vital Signs: 12/02/24 14:10 12/02/24 16:56 Temperature 98 F 98.2 F Temperature Source Oral Oral Pulse Rate 78 Pulse Rate [Radial] 83 Respiratory Rate 16 16 Blood Pressure 124/71 Blood Pressure [Right Arm] 126/68 Blood Pressure Mean [Right Arm] 87 Blood Pressure Source Automatic Cuff Blood Pressure Source [Right Arm] Automatic Cuff Blood Pressure Position Sitting Blood Pressure Position [Right Arm] Sitting 02 Sat by Pulse Oximetry 100 Oxygen Delivery Method Room Air Room Air Lab Data Lab Results 12/02/24 15:08: WBC 6.4, RBC 5.18, Hgb 16.1, Hct 45.4, MCV 87.6, MCH 31.1, MCHC 35.5 H, RDW 11.5, Plt Count 218, MPV 9.0, Neut % (Auto) 60.5, Lymph % (Auto) 28.1, Bacon % (Auto) 9.0, Eos % (Auto) 1.4, Baso % (Auto) 0.8, Neut # (Auto) 3.9, Lymph # (Auto) 1.8, Bacon # (Auto) 0.6, Eos # (Auto) 0.1, Baso # (Auto) 0.1, PT 11.4, INR 1.03, APTT 27.3, Sodium 140, Potassium 3.7, Chloride 103, Carbon Dioxide 28, Anion Gap 12.7, BUN 8 L, Creatinine 0.80, Estimated Creat Clear 104, Estimated GFR 122, Est GFR ( Amer) 148, Glucose 96, Calcium 9.8, Total Bilirubin 0.6, AST 31, ALT 19, Alkaline Phosphatase 57, Total Protein 8.0, Albumin 5.2 H, Globulin 2.8, Albumin/Globulin Ratio 1.9 H, Lipase 47 12/02/24 15:25: Urine Color Yellow, Urine Appearance Sl cloudy, Urine pH 8.0, Ur Specific [place] 1.015, Urine Protein Negative, Urine Glucose (UA) Negative, Urine Ketones Negative, Urine Blood 1+ A, Urine Nitrate Negative, Urine Bilirubin Negative, Urine Urobilinogen 0.2, Ur Leukocyte Esterase Negative, Urine RBC 3-5, Urine WBC None, Ur Squamous Epith Cells None, Amorphous Sediment 2+, Urine Bacteria Trace, Ur C. trach DNA (PCR) Negative, U N.gonorrhoeae DNA PCR Negative, T. vaginalis (PCR) Negative 12/02/24 15:08 12/02/24 15:08 Orders (Tests/Meds): ED MEDICATIONS Discontinued Medications Generic Name Dose Route Start Last Admin Trade Name Freq PRN Reason Stop Dose Admin Iopamidol 75 ml 12/02/24 15:17 12/02/24 15:17 Iopamidol-370 (76%);100ml Bottle IV 12/02/24 15:18 75 ml ONCE ONE Administration Sodium Chloride 10 ml 12/02/24 15:17 12/02/24 15:17 Sodium Chloride 0.9% 10ml Syr (Rad Only) IV 01/01/25 15:16 10 ml NEEDED PRN Administration Maintain IV Site ORDERS Category Date Time Status CT abdomen pelvis w con Stat Cat Scan 12/02/24 15:01 Completed CBC w/Auto Diff [Complete Blood Count Auto Diff] Stat Lab 12/02/24 15:08 Completed CMP [Comprehensive Metabolic Panel] Stat Lab 12/02/24 15:08 Completed Lipase Stat Lab 12/02/24 15:08 Completed PT INR [Prothrombin Time INR] Stat Lab 12/02/24 15:08 Completed PTT [Activated Partial Thrombo Time] Stat Lab 12/02/24 15:08 Completed UA [Urinalysis and Microscopic] Stat Lab 12/02/24 15:25 Completed Urine Chlam/Gono/Trich ([facility]) Stat Lab 12/02/24 15:25 Completed Medical Decision Narrative: Poli Dickerson is a 19y male with no significant past medical history who presents to the emergency department for complaints of right lower quadrant pain intermittently over the last 6 to 8 months. Patient states that 16 months ago, he was having right lower quadrant pain and was told that he had a kidney stone because they found blood in his urine after coming to the emergency department. He states that they did not scan him at that time. Ever since then, reports intermittent sharp right lower quadrant pain that is worsened with movement. He states that every now and then he will radiate down into his testicles. He states that pain worsened in the right lower quadrant this morning but is asymptomatic now. He denies any fever, nausea, vomiting, diarrhea. On arrival, patient is hemodynamically stable, normotensive, afebrile, heart rate within normal limits, breathing comfortably on room air with appropriate oxygen saturation. Physical exam, stated above, revealed overall well-appearing male in no distress. He is lying comfortably on the stretcher. He is not having any abdominal pain at this time. Abdominal exam shows no significant tenderness, distention, or rigidity. Cardiopulmonary exam is unremarkable. Patient does note that he vapes and smokes marijuana 3 times a week. Differential diagnosis includes, but is not limited to: Hernia, appendicitis, urinary tract affection, ureterolithiasis, biliary colic, among others. The most morbid conditions were considered and workup was based on these. Workup in the emergency department included: UA, PT/INR, PTT, CBC with differential, CMP, lactic acid, lipase, CT abdomen pelvis with IV contrast. At this time, patient is not having any pain. Will defer pain medication at this time. Patient's care was transferred to the oncoming physician, Dr. Dave, pending completion of his workup and ultimate disposition. <Lanie Dave, DO - Last Filed: 12/03/24 18:29> Medical Records Medical records reviewed: Yes I reviewed the patient's medical records. Vital Signs: 12/02/24 14:10 12/02/24 16:56 Temperature 98 F 98.2 F Temperature Source Oral Oral Pulse Rate 78 Pulse Rate [Radial] 83 Respiratory Rate 16 16 Blood Pressure 124/71 Blood Pressure [Right Arm] 126/68 Blood Pressure Mean [Right Arm] 87 Blood Pressure Source Automatic Cuff Blood Pressure Source [Right Arm] Automatic Cuff Blood Pressure Position Sitting Blood Pressure Position [Right Arm] Sitting 02 Sat by Pulse Oximetry 100 Oxygen Delivery Method Room Air Room Air Lab Data Lab results reviewed: Yes I reviewed the patient's lab results. Lab Results 12/02/24 15:08: WBC 6.4, RBC 5.18, Hgb 16.1, Hct 45.4, MCV 87.6, MCH 31.1, MCHC 35.5 H, RDW 11.5, Plt Count 218, MPV 9.0, Neut % (Auto) 60.5, Lymph % (Auto) 28.1, Bacon % (Auto) 9.0, Eos % (Auto) 1.4, Baso % (Auto) 0.8, Neut # (Auto) 3.9, Lymph # (Auto) 1.8, Bacon # (Auto) 0.6, Eos # (Auto) 0.1, Baso # (Auto) 0.1, PT 11.4, INR 1.03, APTT 27.3, Sodium 140, Potassium 3.7, Chloride 103, Carbon Dioxide 28, Anion Gap 12.7, BUN 8 L, Creatinine 0.80, Estimated Creat Clear 104, Estimated GFR 122, Est GFR ( Amer) 148, Glucose 96, Calcium 9.8, Total Bilirubin 0.6, AST 31, ALT 19, Alkaline Phosphatase 57, Total Protein 8.0, Albumin 5.2 H, Globulin 2.8, Albumin/Globulin Ratio 1.9 H, Lipase 47 12/02/24 15:25: Urine Color Yellow, Urine Appearance Sl cloudy, Urine pH 8.0, Ur Specific [place] 1.015, Urine Protein Negative, Urine Glucose (UA) Negative, Urine Ketones Negative, Urine Blood 1+ A, Urine Nitrate Negative, Urine Bilirubin Negative, Urine Urobilinogen 0.2, Ur Leukocyte Esterase Negative, Urine RBC 3-5, Urine WBC None, Ur Squamous Epith Cells None, Amorphous Sediment 2+, Urine Bacteria Trace, Ur C. trach DNA (PCR) Negative, U N.gonorrhoeae DNA PCR Negative, T. vaginalis (PCR) Negative Orders (Tests/Meds): ED MEDICATIONS Discontinued Medications Generic Name Dose Route Start Last Admin Trade Name Freq PRN Reason Stop Dose Admin Iopamidol 75 ml 12/02/24 15:17 12/02/24 15:17 Iopamidol-370 (76%);100ml Bottle IV 12/02/24 15:18 75 ml ONCE ONE Administration Sodium Chloride 10 ml 12/02/24 15:17 12/02/24 15:17 Sodium Chloride 0.9% 10ml Syr (Rad Only) IV 01/01/25 15:16 10 ml NEEDED PRN Administration Maintain IV Site ORDERS Category Date Time Status CT abdomen pelvis w con Stat Cat Scan 12/02/24 15:01 Completed CBC w/Auto Diff [Complete Blood Count Auto Diff] Stat Lab 12/02/24 15:08 Completed CMP [Comprehensive Metabolic Panel] Stat Lab 12/02/24 15:08 Completed Lipase Stat Lab 12/02/24 15:08 Completed PT INR [Prothrombin Time INR] Stat Lab 12/02/24 15:08 Completed PTT [Activated Partial Thrombo Time] Stat Lab 12/02/24 15:08 Completed UA [Urinalysis and Microscopic] Stat Lab 12/02/24 15:25 Completed Urine Chlam/Gono/Trich (H) Stat Lab 12/02/24 15:25 Completed Medical Decision Narrative: Poli Dickerson is a 19y male with no significant past medical history who presents to the emergency department for complaints of right lower quadrant pain intermittently over the last 6 to 8 months. Patient states that 16 months ago, he was having right lower quadrant pain and was told that he had a kidney stone because they found blood in his urine after coming to the emergency department. He states that they did not scan him at that time. Ever since then, reports intermittent sharp right lower quadrant pain that is worsened with movement. He states that every now and then he will radiate down into his testicles. He states that pain worsened in the right lower quadrant this morning but is asymptomatic now. He denies any fever, nausea, vomiting, diarrhea. On arrival, patient is hemodynamically stable, normotensive, afebrile, heart rate within normal limits, breathing comfortably on room air with appropriate oxygen saturation. Physical exam, stated above, revealed overall well-appearing male in no distress. He is lying comfortably on the stretcher. He is not having any abdominal pain at this time. Abdominal exam shows no significant tenderness, distention, or rigidity. Cardiopulmonary exam is unremarkable. Patient does note that he vapes and smokes marijuana 3 times a week. Differential diagnosis includes, but is not limited to: Hernia, appendicitis, urinary tract affection, ureterolithiasis, biliary colic, among others. The most morbid conditions were considered and workup was based on these. Workup in the emergency department included: UA, PT/INR, PTT, CBC with differential, CMP, lactic acid, lipase, CT abdomen pelvis with IV contrast. At this time, patient is not having any pain. Will defer pain medication at this time. Patient's care was transferred to the oncoming physician, Dr. Dave, pending completion of his workup and ultimate disposition. Lanie Dave, DO I assumed care at 1900. Findings are reviewed and interpreted by myself: CBC showed no leukocytosis. Hemoglobin was stable. CMP was unremarkable. UA showed no evidence of infection. CT scan showed no acute intra-abdominal pathology on review and interpretation by myself. Patient has been having symptoms for more than 6 months. I recommended that he follow-up with a primary care fighter. Patient was sent with a referral. Patient was discharged home in stable condition, return precautions were discussed. Critical Care <Edilberto Robert MD - Last Filed: 12/02/24 15:58> Critical Care Time Critical Care Time: No
[2024-12-02 15:13] LABS: Hematocrit 45.4 % (42.0-52.0); Hemoglobin 16.1 g/dL (14.1-18.0); Immature Granulocytes % 0.2 %; Mean Corpuscular HGB Conc 35.5 g/dL (31.8-35.4); Mean Corpuscular Hemoglobin 31.1 pg (27.0-31.2); Mean Corpuscular Volume 87.6 fl (80-94); Nucleated Red Blood Cells % 0 %; Platelet Count 218 K/mm3 (142-424); Red Blood Count 5.18 M/mm3 (4.60-6.20); Red Cell Distribution Width-SD 37.2 fL; White Blood Count 6.4 K/mm3 (4.8-10.8)
[2024-12-02] MEDS: SODIUM CHLORIDE 0.9% 10ML SYR (RAD ONLY) 10 ML IV (15:17)
[2024-12-02] MEDS: IOPAMIDOL-370 (76%);100ML BOTTLE 75 ML IV (15:17)
[2024-12-02 15:21] LABS: Albumin Level 5.2 g/dl (3.5-5.0); Chloride 103 mmol/L (98-107); Sodium 140 mmol/L (136-145)
[2024-12-02 15:22] LABS: Potassium 3.7 mmoL/L (3.5-5.1)
[2024-12-02 15:24] LABS: Alanine Aminotransferase 19 U/L (12-78); Alkaline Phosphatase 57 U/L (38-126); Aspartate Amino Transferase 31 U/L (17-59); Bilirubin,Total 0.6 mg/dl (0.2-1.3); Blood Urea Nitrogen 8 mg/dl (9-20); Creatinine Clearance Estimated 104 mL/min (50-200); Creatinine,Serum 0.80 mg/dl (0.66-1.25); Estimated Glomerular Filt Rate 122 ml/min (>60); GFR (African American) 148 ML/MIN (>60)
[2024-12-02 15:25] LABS: Activated Partial Thrombo Time 27.3 seconds (22.8-30.6); Calcium 9.8 mg/dl (8.4-10.2); Glucose 96 mg/dl (74-100); INR 1.03 (0.9-1.1); Lipase 47 U/L (23-300); Prothrombin Time 11.4 seconds (10.1-12.5); Total Protein,Serum 8.0 g/dl (6.3-8.2)
[2024-12-02 15:28] LABS: Microscopic, Urine URINE MICROSCOPIC (MICROSCOPIC)
[2024-12-02 15:29] LABS: Bilirubin,Urine Negative (Negative); Color,Urine YELLOW (Yellow); Glucose,Urine (UA) Negative (Negative); Ketones,Urine Negative (Negative); Leukocyte Esterase,Urine Negative (Negative); PH,Urine 8.0 (5.0-8.5); Protein,Urine Negative (Negative); Specific Gravity, Urine 1.015 (1.005-1.030); Urobilinogen,Urine 0.2 EU/dl (0.2)
[2024-12-02 15:31] LABS: Albumin/Globulin Ratio 1.9 (1.1-1.8); Globulin 2.8 g/dL (1.3-3.2)
[2024-12-02 15:58] LABS: Amorphous Sediment,Urine 2+ /lpf; Bacteria,Urine Trace /lpf
[2024-12-02 16:09] LABS: Anion Gap 12.7 mEq/L (5-15); Carbon Dioxide 28 mmol/L (22.0-30.0)
[2024-12-02 16:56] VITALS: BP 124/71; PULSE 78; RESP 16; TEMP 36.8; O2SAT 100
== END 2024-12-02 16:56 | disposition home or self-care (01) ==
PROVIDERS: Student in an Organized Health Care Education/Training Program; Emergency Provider Student in an Organized Health Care Education/Training Program; PCP Physician Assistant
DX: R10.31 Right lower quadrant pain (principal); F17.290 Nicotine dependence, other tobacco product, uncomplicated
CPT/HCPCS: 74177; 80053; 81001; 83690; 85025; 85610; 85730; 87491; 87591; 87661; 99284; Q9967